=== PATIENT | female | born 1990 | race Caucasian/White ===

== ENCOUNTER 2017-09-17 19:09 | Emergency (ER) | payer OTHER ==
[~2017-09-17] VITALS: Ht 160 cm; Wt 67.1 kg
[~2017-09-17 19:09] MED LIST: PRENATAL TABLE1 EAC3 PO; TYLENOL EXTRA500 MG PO
[2017-09-18] MEDS ORDERED: KEFLEX500 MG PO (01:38)
[2017-09-18] MEDS ORDERED: BACTRIM,SEPT1 TABLET PO (01:38)
[2017-09-18 01:52] VITALS: BP 119/73
== END 2017-09-18 01:53 | disposition home or self-care (01) ==
LOC: EME 19:09
PROC: 0H9DXZZ Drainage of Right Lower Arm Skin, External Approach (ICD-10-PCS; principal; 2017-09-17)
DX: L02.413 Cutaneous abscess of right upper limb (principal); L03.113 Cellulitis of right upper limb; R20.0 Anesthesia of skin; F31.9 Bipolar disorder, unspecified; B19.20 Unspecified viral hepatitis C without hepatic coma; F17.200 Nicotine dependence, unspecified, uncomplicated; Z88.6 Allergy status to analgesic agent
CPT/HCPCS: 99281; 99284